=== PATIENT | female | born 1955 | race Caucasian/White ===

== ENCOUNTER 2018-12-28 20:17 | Emergency (ER) | payer SELFPAY ==
--- NOTE | 2018-12-28 20:25 | PDOC ---
Rapid Medical Evaluation Time Seen by Provider: 12/28/18 20:20 Medical Evaluation: 12/28/18 20:21 CC: swelling to neck PE: mobile mass present to right lateral neck. No stridor. Denies problems swallowing. Orders: nothing The patient will proceed to the ER for continued Evaluation. Discharge Disposition - Diagnosis Neck swelling - Referrals - Patient Instructions - Post Discharge Activity
[2018-12-28 20:38] VITALS: BP 136/85; PULSE 67; TEMP 98.4
--- NOTE | 2018-12-28 21:53 | PDOC ---
History of Present Illness - General Chief Complaint: Edema Stated Complaint: NECK SWOLLEN Time Seen by Provider: 12/28/18 20:20 - History of Present Illness Initial Comments: 63 year old female with PMH of HTN, IDDM, HLD, depression, and chronic right sided neck swelling presenting with worsening right sided neck swelling with feeling as if her sugar was elevated. She also seems to be running low on her insulin. She is originally from [place] but visiting her family for vacation and going back to [place] in January. No fevers, chills, nausea, vomiting, diarrhea, chest pain, dizziness, or other symptoms. 12/28/18 22:37 Past History - Past Medical History Allergies/Adverse Reactions: Allergies Allergy/AdvReac Type Severity Reaction Status Date / Time No Known Allergies Allergy Verified 12/28/18 20:25 Home Medications: Ambulatory Orders Insulin Aspart [Novolog] 100 unit SQ ASDIR PRN #1 pkt 12/29/18 Insulin Glargine,Hum.rec.anlog [Basaglar Kwikpen U-100] 100 unit SQ ASDIR #1 insuln.pen 12/29/18 COPD: No Diabetes: Yes (IDDM) HTN: Yes Hypercholesterolemia: Yes - Psycho Social/Smoking Cessation Hx Smoking History: Never smoked Review of Systems - Review of Systems Constitutional: No: Chills, Diaphoresis, Loss of Appetite HEENTM: No: Blurred Vision, Tearing Respiratory: No: Cough, Orthopnea, Shortness of Breath Cardiac (ROS): No: Chest Pain, Edema, Irregular Heart Rate ABD/GI: No: Diarrhea, Nausea, Rectal Bleeding, Vomiting : No: Dysuria, Discharge, Frequency Musculoskeletal: No: Back Pain, Gout, Joint Pain, Joint Swelling Integumentary: Yes: Lumps Neurological: No: Headache, Numbness, Paresthesia Psychiatric: No: Anxiety, Depression, Frequent Crying Hematologic/Lymphatic: No: Anemia, Blood Clots, Easy Bleeding *Physical Exam - Vital Signs Last Vital Signs Temp Pulse Resp BP Pulse Ox 98.4 F 67 20 136/85 98 12/28/18 20:25 12/28/18 20:25 12/28/18 20:25 12/28/18 20:25 12/28/18 20:25 - Physical Exam General Appearance: Yes: Nourished, Appropriately Dressed. No: Apparent Distress HEENT: positive: EOMI, MISAEL, Normal ENT Inspection, Normal Voice Neck: positive: Trachea midline, Normal Thyroid, Supple, Other (right sided fluctuant neck swellign without warmth, erythema, mass, pulse, or other abnromal findings). negative: Tender, Rigid Respiratory/Chest: positive: Lungs Clear, Normal Breath Sounds. negative: Chest Tender, Respiratory Distress, Accessory Muscle Use Cardiovascular: positive: Regular Rhythm, Regular Rate Gastrointestinal/Abdominal: positive: Normal Bowel Sounds, Flat, Soft. negative : Tender ED Treatment Course - LABORATORY CBC & Chemistry Diagram: 12/28/18 22:50 12/28/18 22:50 Medical Decision Making - Medical Decision Making 63 year old female with IDDM, HTN, HLD, and right sided neck swelling x 1 year presenting with worsening neck swelling and need to get her glucose checked. All labs wnl with glucose 250. No respiratory symptoms, or other concerning PE findings. Will refill insulin and send home with home country PCP follow up instructions. 12/28/18 23:57 Discharge - Discharge Information Problems reviewed: Yes Clinical Impression/Diagnosis: Neck swelling Condition: Improved Disposition: HOME - Admission No - Additional Discharge Information Prescriptions: Insulin Aspart [Novolog] 100 unit SQ ASDIR PRN #1 pkt PRN Reason: hyperg Insulin Glargine,Hum.rec.anlog [Basaglar Kwikpen U-100] 100 unit SQ ASDIR #1 insuln.pen - Follow up/Referral Referrals: [facility] [place] [Provider Group] - Patient Discharge Instructions Patient Printed Discharge Instructions: Type 2 Diabetes Additional Instructions: Utilice tomlin insulina segn lo prescrito por tomlin otro mdico. Jasmin un seguimiento con tomlin mdico en [place] o programe atencin con nuestros mdicos si se hospeda en rima pas. Regrese al servicio de urgencias si tiene sntomas nuevos o que empeoran. Print Language: MALIAN - Post Discharge Activity
--- NOTE | 2018-12-28 22:18 | PDOC ---
Attending Attestation - Resident Resident Name: Altaf Hopkins - ED Attending Attestation I have performed the following: I have examined & evaluated the patient, The case was reviewed & discussed with the resident, I agree w/resident's findings & plan - HPI HPI: 12/28/18 23:34 see resident hpi - Physicial Exam PE: 12/28/18 23:34 agree with resident exam - Medical Decision Making 12/28/18 23:34 63-year-old female visiting from [place] with elevated blood sugar after running low on insulin Blood glucose elevated at 251 with no secondary indicators of DKA Patient received 1 L IV fluid normal saline She will be given refills on her insulin pens which she does have on her person and be discharged with recommended outpatient follow-up In regards to chronic right neck swelling, there is no palpable mass, there is no pulsatile aspect, area is nontender and airway is intact Due to chronic nature recommended outpatient follow-up will be recommended as well
[2018-12-28] MEDS ORDERED: ACETAMINOPHEN 500 MG TABLET (FP) PO ONE (22:22)
[2018-12-28] MEDS ORDERED: ACETAMINOPHEN 325 MG TABLET (FP) ONE (22:37)
[2018-12-28] MEDS ORDERED: SODIUM CHLORIDE 0.9% 500 ML INFUS.BAG IV ONE (22:41)
[2018-12-28 23:02] LABS: BASO % 1.5 % (0-2.0); EOS % 2.5 % (0-4.5); HEMATOCRIT 42.5 % (32.4-45.2); HEMOGLOBIN 14.2 GM/dL (10.7-15.3); MCH 28.8 pg (25.7-33.7); MCHC 33.3 g/dl (32.0-36.0); MEAN CELL VOLUME 86.5 fl (80-96); MEAN PLT VOLUME 8.8 fl (7.5-11.1); MONO % 4.9 % (3.8-10.2); NEUT % 43.1 % (42.8-82.8); PLATELET COUNT 322 K/MM3 (134-434); RBC 4.92 M/mm3 (3.60-5.2); WHITE BLOOD COUNT 7.7 K/mm3 (4.0-10.0)
[2018-12-28 23:26] LABS: BILIRUBIN,TOTAL 0.4 mg/dL (0.2-1); BLOOD UREA NITROGEN 14.4 mg/dL (7-18); CALCIUM 9.4 mg/dL (8.5-10.1); CREATININE 0.8 mg/dL (0.55-1.3); POTASSIUM 4.3 mmol/L (3.5-5.1)
== END 2018-12-29 00:42 | disposition home or self-care (01) ==
LOC: JER 20:17
DX: R22.1 Localized swelling, mass and lump, neck (principal); I10 Essential (primary) hypertension; E11.9 Type 2 diabetes mellitus without complications; Z79.4 Long term (current) use of insulin; E78.5 Hyperlipidemia, unspecified; E78.00 Pure hypercholesterolemia, unspecified; F32.9 Major depressive disorder, single episode, unspecified
CPT/HCPCS: 36415; 80053; 82962; 85025; 99282-25